=== PATIENT | female | born 1995 | race Caucasian/White ===

== ENCOUNTER → 2019-09-24 09:30 | Outpatient (BNVA) | payer MEDICAID, SELFPAY | PROVIDERS: Visit Provider Obstetrics & Gynecology | DX: Z01.89 Encounter for other specified special examinations (principal) | CPT/HCPCS: 84315 ==

== ENCOUNTER → 2019-10-22 07:58 | Outpatient (BNVA) | payer MEDICAID, SELFPAY | PROVIDERS: Visit Provider Obstetrics & Gynecology | DX: Z34.82 Encounter for supervision of other normal pregnancy, second trimester (principal) | CPT/HCPCS: 81003; 82950 ==

== ENCOUNTER → 2019-11-19 08:03 | Outpatient (BNVA) | payer MEDICAID, SELFPAY | PROVIDERS: Visit Provider Obstetrics & Gynecology | DX: Z34.83 Encounter for supervision of other normal pregnancy, third trimester (principal) | CPT/HCPCS: 81000; 85027 ==

== ENCOUNTER → 2019-12-02 08:10 | Outpatient (BNVA) | payer MEDICAID, SELFPAY | PROVIDERS: Visit Provider Obstetrics & Gynecology | DX: O99.343 Other mental disorders complicating pregnancy, third trimester (principal) | CPT/HCPCS: 81000 ==

== ENCOUNTER → 2019-12-16 09:11 | Outpatient (BNVA) | payer MEDICAID, SELFPAY | PROVIDERS: Visit Provider Obstetrics & Gynecology | DX: Z34.83 Encounter for supervision of other normal pregnancy, third trimester (principal) | CPT/HCPCS: 81000 ==

== ENCOUNTER → 2019-12-28 08:54 | Outpatient (BNVA) | payer MEDICAID, SELFPAY | PROVIDERS: Visit Provider Obstetrics & Gynecology | DX: O99.343 Other mental disorders complicating pregnancy, third trimester (principal); Z34.83 Encounter for supervision of other normal pregnancy, third trimester | CPT/HCPCS: 81000 ==

== ENCOUNTER → 2020-01-14 10:04 | Outpatient (BNVA) | payer MEDICAID, SELFPAY | PROVIDERS: Visit Provider Obstetrics & Gynecology | DX: Z34.83 Encounter for supervision of other normal pregnancy, third trimester (principal) | CPT/HCPCS: 76816; 81000; 87081 ==

== ENCOUNTER → 2020-01-21 07:55 | Outpatient (BNVA) | payer MEDICAID, SELFPAY | PROVIDERS: Visit Provider Obstetrics & Gynecology | DX: Z34.83 Encounter for supervision of other normal pregnancy, third trimester (principal) | CPT/HCPCS: 81000 ==

== ENCOUNTER → 2020-01-28 08:01 | Outpatient (BNVA) | payer MEDICAID, SELFPAY | PROVIDERS: Visit Provider Obstetrics & Gynecology | DX: Z34.83 Encounter for supervision of other normal pregnancy, third trimester (principal) | CPT/HCPCS: 81000 ==

== ENCOUNTER 2020-02-02 00:17 | Inpatient (IN) | payer MEDICAID, SELFPAY ==
[2020-02-01 23:48] VITALS: RESP 16; TEMP 37.1
[2020-02-01 23:50] VITALS: RESP 16; TEMP 37.1
[2020-02-01 23:54] VITALS: BP 117/68; PULSE 100
[2020-02-02] VITALS (83 sets, daily range): BP systolic 0–148; BP diastolic 0–112; PULSE 73–116; RESP 15–18; TEMP 36.6–37.3; O2SAT 79–99; BMI 34.5
[2020-02-02 00:49] LABS: Basophils % 0.2 %; Eosinophils # 0.1 10^3/uL (0.0-0.8); Eosinophils % 0.3 %; Hematocrit 36.9 % (37.0-47.0); Hemoglobin 12.1 g/dL (11.5-15.3); Lymphocytes # 1.2 10^3/uL (0.8-4.8); Lymphocytes % 8.4 %; Mean Corpuscular HGB Conc 32.8 g/dL (30.0-36.0); Mean Corpuscular Hemoglobin 31.1 pg (28.0-34.0); Mean Corpuscular Volume 94.9 fL (81-99); Mean Platelet Volume 10.7 fL (7.4-10.4); Monocytes # 0.7 10^3/uL (0.2-0.9); Monocytes % 4.7 %; Neutrophils # 12.3 10^3/uL (1.8-7.7); Neutrophils % 85.8 %; Nucleated Red Blood Cells % 0 %; Platelet Count 290 10^3/cmm (130-400); Red Blood Count 3.89 10^6/uL (4.1-5.3); Red Cell Distribution Width 12.8 % (12.1-15.1); White Blood Count 14.3 10^3/uL (4.0-10.0)
[2020-02-02] MEDS: ondansetron 2 mg/ML SDV 2 mL 4 MG IVP (00:50)
[2020-02-02] MEDS: alum-mag-hydroxide-sime 30 mL UDC PO ×2 (00:51→14:40)
[2020-02-02] MEDS: fentaNYL 50 mcg/mL INJ 2mL IV ×5 (01:04→06:43)
--- NOTE | 2020-02-02 01:15 | PC.NURSE ---
report given to Cyn Colunga RN, care relinquished
[2020-02-02] MEDS: dextrose 5%-lactated ringers 1,000 ML 125 ML IV (01:36)
--- NOTE | 2020-02-02 07:25 | P.ANESASSM_ITS ---
Pre-Anesthetic Assessment Pre-Anesthetic Assessment: Height/Weight: Height 1.57 m Weight 85.729 kg Temp Pulse Resp BP Pulse Ox 99.1 F 116 H 18 111/50 79 L 02/02/20 03:59 02/02/20 07:44 02/02/20 06:43 02/02/20 07:44 02/02/20 07:41 Preop Diagnosis: IUP Proposed Procedure: labor epidural Was Beta Demario taken within 24 hours: N/A Social: Social History: No alcohol and No tobacco Exam: Pre-Anes Outpt Exam: alert, oriented x 3, clear to auscultation bilaterally and regular rate & rhythm Airway: Submandibular: WNL Cervical ROM: WNL MP: 1 History/ROS: No significant history except as noted Pulmonary: Pulmonary: None reported CV/HEM: CV/HEM: None reported : : None reported Hepatic: Hepatic: None reported GI: GI: GERD Metabolic: Metabolic: None reported Musc/skel: Musc/skel: None reported Neuropsych: Neuropsych: None reported Anesthetic Plan: ASA status: 1 Anesthesia: Anesthesia Evaluation Risk of > 500 ml blood loss (7ml/kg in children): No Meds/Allergies Current Medications: Current Medications Generic Name Dose Route Start Last Admin Trade Name Freq PRN Reason Stop Dose Admin Al Hydrox/Mg [place] x/Simethicone 30 ml 02/02/20 00:07 02/02/20 00:51 Maalox PO 30 ml Q4H PRN Administration INDIGESTION Fentanyl 25 - 100 mcg 02/02/20 00:07 02/02/20 06:43 Sublimaze IV 50 mcg Q1H PRN Administration SEVERE PAIN Dextrose/Lactated Ringer's 1,000 mls @ 125 m ls/hr 02/02/20 00:07 02/02/20 01:36 Dextrose 5%-Lact ated Ringers IV 125 mls/hr .Q8H PRN Administration LABOR INDUCTION Lactated Ringer's 1,000 mls @ 999 m ls/hr 02/02/20 06:58 02/02/20 07:31 Lactated Ringers IV 999 mls/hr .Q1H1M PRN Administration epidural Ropivacaine 200 mg in 100 mls @ 13 mls/hr 02/02/20 07:00 02/02/20 07:46 Naropin Premix EPIDURAL 13 mls/hr .Q7H42M CHRISTIANE Administration Ondansetron HCl 4 mg 02/02/20 00:07 02/02/20 00:50 Zofran IVP 4 mg Q4H PRN Administration NAUSEA AND VOMITI NG PFSH Anesthesia PFSH: Medical History (Updated 01/28/20 @ 08:03 by Elliott Ponce MD) Depression 07/28/2019: Reports prepregnancy depression, currently managed without me dication. Has had counseling at [facility]. Surgical History S/P dilation and curettage (~2012) EAb Family History Father Diabetes Mother Thyroid disease Social History Smoking and tobacco status: former smoker Quit status (tobacco): has quit using tobacco Year quit tobacco: 01/2018 Former quit date comment: social use Alcohol intake: never Additional social history: well balanced diet Female Reproductive History: : 4 Data Anesthesia CBC & Chem 7: 02/02/20 00:30 Other Labs: Laboratory Results - last 48 hr 02/02/20 00:30 WBC 14.3 H RBC 3.89 L Hgb 12.1 Hct 36.9 L MCV 94.9 MCH 31.1 MCHC 32.8 RDW 12.8 Plt Count 290 MPV 10.7 H Neut % (Auto) 85.8 Lymph % (Auto) 8.4 [place] % (Auto) 4.7 Eos % (Auto) 0.3 Baso % (Auto) 0.2 Neut # (Auto) 12.3 H Lymph # (Auto) 1.2 [place] # (Auto) 0.7 Eos # (Auto) 0.1 Baso # (Auto) 0.0 Nucleated RBC % (auto) 0 Nucleated RBCs # 0.0 Cardiac Studies: No Data to Display
[2020-02-02] MEDS: lactated ringers 1,000 ML 999 ML IV (07:31)
--- NOTE | 2020-02-02 07:50 | ANES.PROC ---
Anesthesia Procedures Procedure/Date: 02/02/20 Epidural: Time Out Performed: Yes Consents Signed: Procedure Consent Consent: requested by attending/covering physician Lumbar Level: L3-L4 Epidural position: sitting Epidural procedure: sterile prep of area, 1% lidocaine to numb the area, 18 g needle, negative for paresthesia passed, neg for paresthesia, 1.5% xylocaine 1:200k epi (5ml), placed PCEA, no systemic response, sterile dressing applied, L.U.D. no apparent complications and 0.2% Ropiavacaine @ mls/hr (13)
[2020-02-02] MEDS: oxytocin 30 UNIT/500 ML BAG 600 UNIT IV (08:45)
--- NOTE | 2020-02-02 08:56 | P.PCNOB_ITS ---
Delivery Note: Date of delivery: February 02, 2020 Pre-delivery diagnoses: 1. Term at 39-4/7 weeks gestation 2. Mental disorder complicating in third trimester 3. Gastroesophageal reflux in in third trimester Post-delivery diagnoses: 1. Term at 39-4/7 weeks gestation - delivered 2. Mental disorder complicating - delivered 3. Gastroesophageal reflux in - delivered 4. Viable female Procedure: Spontaneous vaginal delivery Op report anesthesia: Epidural Delivering Physician: Elliott Ponce MD Estimated blood loss (mL): 50 Pre-Delivery Course: Patient is a 24-year-old white female 4, para 1-0-2-1 with an LMP of 05/01/2019 and an EDC of 02/05/2020 based on LMP and consistent with a 20-week ultrasound, which placed her at 39-3/7 weeks gestation at the time of admission. She presented to labor and delivery at 23:40 on 02/01/2020 with a complaint of contractions. She stated these had started at about 5 AM that morning but had slowly worsened through the day before becoming strong enough that she decided to come to the hospital. She had denied any leaking of fluid or vaginal bleeding at that time. On exam on admission she was found to be 80% effaced and 4 to 5 cm dilated at a -1 station. She was jose about every 5 minutes. She was admitted to the hospital and allowed to labor on her own. This morning she was 8 cm dilated and was uncomfortable enough that she decided she wanted an epidural. Epidural was placed. At 07:57, artificial rupture membranes was performed with clear fluid present. The cervix was 8 cm dilated at the time with bulging membranes with the cervix shrinking to 5 cm dilation after AROM. She then progressed to complete dilation by 08:28. During the labor course she had episodes of intermittent variable decelerations. Following ROM, she had more consistent variable decelerations. Delivery: Patient started pushing at 08:37 and delivered at 08:40 as a spontaneous vaginal delivery of an occiput anterior female over an intact perineum under epidural anesthesia. Following delivery of the 's head, no nuchal cords were noted. The rest of the delivered atraumatically with the right shoulder anterior. Nose and mouth were suctioned with bulb suction. was placed on the mother's abdomen where the cord was clamped. It was cut by the reported father of the baby. The baby was spontaneously crying and left in the care of the waiting nurses. Cord blood was obtained. Pitocin bolus was started. Placenta delivered intact by simple expression at 08:44. The cervix and vagina were palpated and noted to be intact. The labia were inspected and noted to be intact except for superficial abrasions which required no repair. FINDINGS 1. Viable female infant weighing 6 lbs 5 oz (2855 g) with a length of 20 inches and Apgars of 8 at 1 minute and 9 at 5 minutes. 2. Three-vessel cord with no loops of nuchal cord noted. 3. Normal-appearing placenta with an eccentric cord insertion. Post-Delivery Status: Mother and were left to recover in satisfactory condition. A&P Assessment and plan (1) Term delivered: Status: Acute (2) Mental disorder in , delivered: Status: Acute (3) Gastroesophageal reflux in in third trimester: Status: Acute (4) Term of female: Status: Acute Coding Level of Care Code Acute Diesel Pile Driver Operator for Chg Fwd Diagnoses Term delivered O80 Mental disorder in , delivered O99.344 Gastroesophageal reflux in in third trimester O99.613; K21.9 Term of female Z37.0
[2020-02-02] MEDS: acetaminophen 325 mg Tablet 650 MG PO (12:30)
[2020-02-02] MEDS: docusate sodium 100 mg Capsule PO (21:06)
[2020-02-03 02:45] VITALS: BP 121/80; PULSE 82; RESP 18; TEMP 36.8
[2020-02-03 05:51] VITALS: BP 132/70; PULSE 72; RESP 18; TEMP 36.6
[2020-02-03 05:51] LABS: Hematocrit 32.4 % (37.0-47.0); Hemoglobin 10.4 g/dL (11.5-15.3); Mean Corpuscular HGB Conc 32.1 g/dL (30.0-36.0); Mean Corpuscular Hemoglobin 30.6 pg (28.0-34.0); Mean Corpuscular Volume 95.3 fL (81-99); Mean Platelet Volume 10.4 fL (7.4-10.4); Platelet Count 236 10^3/cmm (130-400); White Blood Count 12.4 10^3/uL (4.0-10.0)
[2020-02-03] MEDS: prenatal vitamin Capsule 1 CAP PO (08:38)
[2020-02-03] MEDS: docusate sodium 100 mg Capsule PO (08:38)
[2020-02-03 11:30] VITALS: BP 124/82; PULSE 84; RESP 16; TEMP 36.8; O2SAT 98
[2020-02-03] MEDS: benzocaine-menthol 78 gm Canister 1 SPRAY TOPICAL (12:33)
--- NOTE | 2020-02-03 13:19 | P.DS_ITS ---
Discharge Providers Date of Admission: 02/02/20 00:17 Date of Discharge: February 03, 2020 Attending Provider at Admission: Elliott Ponce MD Attending Provider at Discharge: Elliott Ponce MD Diagnoses at Discharge Discharge Diagnosis (1) Term delivered: Status: Resolved (2) Mental disorder in , delivered: Status: Resolved (3) Gastroesophageal reflux in in third trimester: Status: Resolved (4) Term of female: Status: Resolved Reason for Visit 2 Reason for Visit: abd pain Hospital Course Hospital Course: Patient is a 24-year-old white female 4, para 1-0-2-1 with an LMP of 05/01/2019 and an EDC of 02/05/2020 based on LMP and consistent with a 20-week ultrasound, which placed her at 39-3/7 weeks gestation at the time of admission. She presented to L&D on 02/01/2020 at 23:40 complaining of contractions. They had started earlier that morning but have slowly worsened through the day before eventually becoming strong enough that she decided to come to the hospital. On admission she was noted to be 80% effaced on 4 to 5 cm dilated. She was jose every 5 minutes. She continued to progress through the morning and eventually decided to have an epidural. Following epidural, she was noted to be 8 cm dilated with bulging membranes at 07:57. Artificial rupture membranes was performed with clear fluid present. She progressed to complete dilation by 08:28. Patient started pushing at 08:37 and delivered at 08:40 as a spontaneous vaginal delivery of an occiput anterior female infant over an intact perineum under epidural anesthesia. The baby weighed 6 pounds 5 ounces (2855 g) with a length of 20 inches and Apgars of 8 at 1 minute and 9 at 5 minutes. She had superficial abrasions which required no repair. Mother and baby both did well following delivery. Day 1 Patient denies complaints at this time. States pain is been well controlled. Denies lightheadedness or dizziness with ambulation. Denies shortness of breath or chest pains. Reports tolerating a regular diet without nausea or vomiting. Denies problems with urination. States bleeding has slowed. She is requesting to go home. Physical Exam: See below. Plan: Discharge to home. Discharge instructions discussed with patient. Patient to follow-up in the office in 6 weeks for exam. Physical Exam Const: COMMON NORMALS: no acute distress, average body habitus, alert and well nourished GENERAL APPEARANCE: well developed ORIENTATION/CONSCIOUSNESS: Yes oriented to person, Yes oriented to place and Yes oriented to time Resp: COMMON NORMALS: clear to auscultation bilaterally AUSCULTATION: clear to auscultation bilaterally Cardio: COMMON NORMALS: regular rate, regular rhythm, No gallops present (Cardio) and No rub (Cardio) RATE: regular rate RHYTHM: regular rhythm GI: COMMON NORMALS: Soft to palpation, non-tender, No hepatosplenomegaly present and no masses (Except for nontender firm uterus, 2 fingerbreadths below umbilicus) AUSCULTATION: Yes normoactive bowel sounds PALPATION: Yes Soft to palpation, Yes No hepatosplenomegaly present and No Hernia present : EXTERNAL FEMALE EXAM: No Hernia present Neuro: SENSORIUM/ORIENTATION: Yes alert, Yes oriented to person, Yes oriented to place and Yes oriented to time Psych: COMMON NORMALS: normal affect MOOD & AFFECT: Yes euthymic mood Discharge Data Data Completed and Pending: Labs from last 24 hours 02/03/20 05:35 WBC 12.4 H RBC 3.40 L Hgb 10.4 L Hct 32.4 L MCV 95.3 MCH 30.6 MCHC 32.1 RDW 13.0 Plt Count 236 MPV 10.4 Vitals: Last Vital Signs Temp 97.8 F 02/03/20 05:51 Pulse 72 02/03/20 05:51 Resp 18 02/03/20 05:51 BP 132/70 02/03/20 05:51 Pulse Ox 99 02/02/20 22:32 Discharge Plan Discharge Patient Disposition: Home, Self-Care Condition: Stable Prescriptions: Continued prenat.vits,cherrie,[id number] Tablet 1 tab PO QDAY RF: 0 acetaminophen [Tylenol Extra Strength] 500 mg tablet 500 mg PO Q6H PRN (Reason: Pain) RF: 0 Discontinued famotidine [Pepcid] 20 mg tablet 20 mg PO BID RF: 0 Discharge Orders: Discharge Order (Routine); Ordered 02/03/20 Ordered By: Elliott Ponce Referrals: Elliott Ponce MD [Physician] - 03/16/20 10:15 am (* Your 6 week follow up appointment with Dr. Ponce is March 16 2020 at 10:15am. ) Discharge Diet: Regular Discharge Activity: Resume usual activity Patient Instructions: OB Discharge Report, OB Anesthesia Instructions, OB Food/Drug Interaction Guide, OB Home Care, OB Proud Parent Packet, OB Vaginal Deliveries - [facility] Discharge Date/Time: 02/03/20 14:20 Discharge Attestations Time Spent in Discharge Care*: less than 30 min Quality Metrics Clinical Quality Measures During this hospital stay, did patient experience: None Coding Level of Care Code Acute Oil Well Logger for Chg Fwd Exam Detailed Diagnoses Term delivered O80 Mental disorder in , delivered O99.344 Gastroesophageal reflux in in third trimester O99.613; K21.9 Term of female Z37.0
== END 2020-02-03 14:20 | disposition home or self-care (01) | DRG 807 ==
LOC: OPOB 00:18 → OBGYN 00:18
PROVIDERS: Admitting Provider Obstetrics & Gynecology; Visit Provider Obstetrics & Gynecology
DX: O76 Abnormality in fetal heart rate and rhythm complicating labor and delivery (principal); Z37.0 Single live birth; Z3A.39 39 weeks gestation of pregnancy; O75.89 Other specified complications of labor and delivery; K21.9 Gastro-esophageal reflux disease without esophagitis
CPT/HCPCS: 12345; 36415; 51702; 59025; 59409; 85025; 85027; 96374; 96375; 98960; 99211; J2405; J2795; J3010

== ENCOUNTER 2022-11-26 23:27 | Inpatient (IN) | payer BC, MEDICAID, SELFPAY ==
[2022-11-26 22:46] VITALS: RESP 16
[2022-11-26 22:50] VITALS: TEMP 35.6
[2022-11-26 22:53] VITALS: BP 113/69; PULSE 87
[2022-11-26 23:22] VITALS: BP 118/66; PULSE 89
[2022-11-26 23:35] VITALS: RESP 18; TEMP 36.4
[2022-11-26 23:56] VITALS: BP 127/74; PULSE 84
[2022-11-27] VITALS (44 sets, daily range): BP systolic 88–146; BP diastolic 53–93; PULSE 63–110; RESP 18; O2SAT 82–99
[2022-11-27 00:12] LABS: Basophils % 0.3 %; Eosinophils % 0.3 %; Hematocrit 37.9 % (37.0-47.0); Hemoglobin 12.4 g/dL (11.5-15.3); Lymphocytes # 1.4 10^3/uL (0.8-4.8); Lymphocytes % 12.5 %; Mean Corpuscular HGB Conc 32.7 g/dL (30.0-36.0); Mean Corpuscular Hemoglobin 30.9 pg (28.0-34.0); Mean Corpuscular Volume 94.5 fl (81-99); Mean Platelet Volume 10.2 fL (7.4-10.4); Monocytes # 0.5 10^3/uL (0.2-0.9); Monocytes % 4.7 %; Neutrophils % 81.6 %; Nucleated Red Blood Cells % 0 %; Platelet Count 341 10^3/cmm (130-400); Red Blood Count 4.01 10^6/uL (4.1-5.3); Red Cell Distribution Width 12.6 % (12.1-15.1); White Blood Count 11.5 10^3/uL (4.0-10.0)
[2022-11-27] MEDS: ondansetron 2 mg/ML SDV 2 mL 4 MG IVP (00:14)
[2022-11-27 00:35] LABS: Amphetamines Screen Urine Negative (Negative); Barbiturates Screen Urine Negative (Negative); Benzodiazepines Screen Urine Negative (Negative); Cocaine Screen Urine Negative (Negative); Opiate Screen Urine Negative (Negative); PCP Screen Urine Negative (Negative); THC Screen Urine Positive (Negative)
[2022-11-27] MEDS: lactated ringers 1,000 ML 999 ML IV (00:50)
--- NOTE | 2022-11-27 01:12 | P.ANESASSM_ITS ---
Pre-Anesthetic Assessment Height/Weight: Height 1.57 m Weight 81.647 kg Temp Pulse Resp BP O2 Del Method 97.6 F 93 18 128/80 11/26/22 23:35 11/27/22 00:56 11/26/22 23:35 11/27/22 00:56 11/26/22 23:52 Preop Diagnosis: IUP epidural Familial anesthetic complications: none Was Beta Demario taken within 24 hours: N/A Was Clonidine taken within 24 hours: N/A Last Intake: 22:00 Social No alcohol and No tobacco Exam alert, oriented x 3, clear to auscultation bilaterally and regular rate & rhythm Airway Submandibular: within normal limits Cervical ROM: within normal limits Mallampati: Class II Dentition: full Pulmonary None reported CV/HEM None reported None reported Hepatic None reported GI Gastroesophageal Reflux Disease (with ) Metabolic None reported Musc/skel Lower Back Pain (with ) Neuropsych None reported Anesthetic Plan ASA status: 2 Anesthesia: Regional (specify below) (epidural) Risk of > 500 ml blood loss (7ml/kg in children): No Medications/Allergies Home Medications Medication Instructions Recorded Confirmed Last Taken Type prenat.vits,cherrie,[id number] 1 tab PO DAILY 11/26/22 11/26/22 11/23/22 History Allergies Allergy/AdvReac Type Severity Reaction Status Date / Time No Known Allergies Allergy Verified 11/26/22 22:48 Current Medications Generic Name Dose Route Start Last Admin Trade Name Freq PRN Reason Stop Dose Admin Ondansetron HCl 4 mg 11/26/22 23:35 11/27/22 00:14 Ondansetron 2 Mg/Ml Sdv 2 Ml IVP 4 mg Q4H PRN Administration NAUSEA AND VOMITING PFSH Anesthesia Medical History (Updated 02/20/21 @ 11:50 by Su Coreas MD) ADHD Depression 07/28/2019: Reports prepregnancy depression, currently managed without medication. Has had counseling at [facility], [place]. Surgical History S/P dilation and curettage (~2012) EAb Family History Father Diabetes Mother Thyroid disease Social History (Updated 02/20/21 @ 09:46 by Jonathan Dumont LPN) Smoking and tobacco status: former smoker Quit status (tobacco): has quit using tobacco Year quit tobacco: 01/2018 Former quit date comment: social use Second hand smoke exposure: Yes (Rarely) Alcohol intake: never Additional social history: well balanced diet Female Reproductive History : 5 Data Anesthesia 11/26/22 23:45 Short CBC 11/26/22 Range/Units 23:45 WBC 11.5 H (4.0-10.0) 10^3/uL Hgb 12.4 (11.5-15.3) g/dL Hct 37.9 (37.0-47.0) % MCV 94.5 (81-99) fl Plt Count 341 (130-400) 10^3/cmm Neut % (Auto) 81.6 % Neut # (Auto) 9.40 H (1.8-7.7) 10^3/uL Cardiac Studies: No Data to Display
--- NOTE | 2022-11-27 01:46 | ANES.PROC ---
Anesthesia Procedures Procedure/Date: 11/27/22 Epidural: Time Out Performed: Yes Consents Signed: Procedure Consent and NPO Consent Consent: requested by attending/covering physician, from patient, risks and benefits reviewed and patient agrees to proceed Lumbar Level: L3-L4 Epidural position: sitting Epidural procedure: sterile prep of area (betadine), 1% lidocaine to numb the area (3ml), 18 g needle, negative for paresthesia passed, neg for paresthesia, test dose given, 1.5% xylocaine 1:200k epi (3ml/2ml), 0.2% Ropivacaine bolus ml (5ml), placed PCEA, no systemic response, sterile dressing applied, L.U.D. no apparent complications and 0.2% Ropiavacaine @ mls/hr (13ml/hr)
[2022-11-27] MEDS: metoclopramide 5 mg/mL SDV 2 mL 10 MG IV (02:01)
[2022-11-27] MEDS: oxytocin 30 UNIT/500 ML BAG 600 UNIT IV (02:27)
--- NOTE | 2022-11-27 02:35 | PM.OPHPUD ---
Labor & Delivery H&P Update Date of Procedure: November 27, 2022 Date H&P Performed: 11/25/22 Changes to previous documentation: The patient arrived at 5 cm dilated having consistent contractions. Admission Diagnosis: 27-year-old 4 para 2-0-1-2 at 39 weeks estimated gestational age in active labor Preop diagnosis: IUP Other information: The patient is an otherwise healthy 27-year-old female who presents to the hospital in active labor. Her membranes were intact. Her is significant for late care. And, other than a ultrasound performed in the first trimester, she had minimal care prior to seeing me due to moving and other issues. Her blood type is O+. Her antibody screen was negative. Her GBS status is negative. She is rubella immune. She was THC positive. The rest of her infectious disease profile was within normal limits.
--- NOTE | 2022-11-27 02:42 | PM.DELIVERY ---
Delivery Note: Date of delivery: November 27, 2022 Pre-delivery diagnoses: 27-year-old 5 para 2-0-2-2 at 39 weeks estimated gestational age presenting to the hospital in active labor. Post-delivery diagnoses: Status post precipitous delivery Procedure: Precipitous spontaneous vaginal delivery Delivering Physician: Mark Modi Estimated blood loss (mL): 50 Pre-Delivery Course: Patient presented to the hospital in active labor. An epidural was placed. She then quickly progressed to complete prior to the epidural having of incomplete effect. Delivery: DELIVERY: The patient progressed to complete without difficulty. She delivered a female with a weight of 5 pounds 11 ounces with Apgars of 7, 9. The baby was delivered from the vertex position. and placed on the mother's abdomen until I arrived in the room. I then assisted with cutting clamp the cord. There was no nuchal cord. There was no meconium. The placenta and 3 vessel cord were delivered intact shortly thereafter. The perineum and vaginal vault were carefully examined. No lacerations were noted. Both the mother and the baby were in stable condition. Post-Delivery Status: Good History History History 5 Term 2 0 Miscarriages/Ectopic 2 Living Children 2 A&P Assessment and plan (1) 39 weeks gestation of : I anticipate routine care. (2) Spontaneous vaginal delivery: Coding Level of Care Code Acute Code for Chg Fwd Diagnoses 39 weeks gestation of Z3A.39 Spontaneous vaginal delivery O80
[2022-11-27] MEDS: benzocaine-menthol 78 gm Canister 1 SPRAY TOPICAL (05:10)
[2022-11-27] MEDS: lanolin oint 7 gm 1 APPLIC TOPICAL (05:10)
--- NOTE | 2022-11-27 07:41 | PC.NURSE ---
hotline made by this nurse to Jessica worker number [id number] due to positive UDS and late to care at 37 weeks.
[2022-11-27] MEDS: prenatal vitamin Capsule 1 CAP PO (09:19)
[2022-11-27] MEDS: docusate sodium 100 mg Capsule PO ×2 (09:19→19:05)
[2022-11-27] MEDS: ibuprofen 800 mg tablet PO ×3 (09:19→21:34)
--- NOTE | 2022-11-27 11:17 | ANE.PACU2 ---
Inpatient post-anesthesia follow up: Airway intact: Yes Vital signs: Temperature 97.6 F Pulse Rate 92 Respiratory Rate 18 Blood Pressure 113/63 Pulse Oximetry 97 Oxygen Delivery Me thod Room Air Oxygen Flow Rate Fraction of Inspir ed Oxygen Hydration adequate: Yes Nausea and vomiting: No Pain level: 2 Mental status: Baseline
[2022-11-27 14:20] LABS: Hemoglobin 11.8 g/dL (11.5-15.3); Mean Corpuscular HGB Conc 33.7 g/dL (30.0-36.0); Mean Corpuscular Hemoglobin 31.8 pg (28.0-34.0); Mean Corpuscular Volume 94.3 fl (81-99); Mean Platelet Volume 10.3 fL (7.4-10.4); Platelet Count 345 10^3/cmm (130-400); Red Blood Count 3.71 10^6/uL (4.1-5.3); Red Cell Distribution Width 12.5 % (12.1-15.1); White Blood Count 16.5 10^3/uL (4.0-10.0)
[2022-11-28 05:15] VITALS: BP 109/62; PULSE 77
--- NOTE | 2022-11-28 07:11 | P.DS_ITS ---
Discharge Providers [employer] Date of Admission: 11/26/22 23:27 Date of Discharge: 11/28/22 Attending Provider at Admission: Mark Modi MD Attending Provider at Discharge: Mark Modi MD Diagnoses at Discharge Discharge Diagnosis (1) 39 weeks gestation of : Status: Acute (2) Spontaneous vaginal delivery: Status: Acute Reason for Visit Reason for Visit: CONTRACTIONS Hospital Course Hospital Course The patient presented to the hospital with contractions and cervical change. An epidural was placed. She progressed to complete and had a precipitous delivery. Her course was unremarkable. Her bleeding was within normal limits. She breast-fed well. Her pain was well controlled. Information Peripartum Data: Delivery Method: Vaginal Physical Exam Narrative: The patient is alert. She appears comfortable. Her heart has a regular rate and rhythm with no murmurs appreciated. Lungs are clear to auscultation bilaterally. Her fundus is firm and below the umbilicus. Urinary Catheter Management: Duncan Latex: Cath Placed During This Visit: yes, but has since been removed by the nurse Reason for Continuing Indwelling Catheter: Decision to DC Catheter Urinary Catheter Date of Insertion: 11/27/22 Urinary Catheter Time of Insertion: 02:05 Date Urinary Catheter Removed: 11/27/22 Time Urinary Catheter Discontinued: 02:35 History History History 5 Term 2 0 Miscarriages/Ectopic 2 Living Children 2 Discharge Data Studies Completed and Pending Laboratory Results WBC 16.5 10^3/uL (4.0-10.0) H 11/27/22 14:10 RBC 3.71 10^6/uL (4.1-5.3) L 11/27/22 14:10 Hgb 11.8 g/dL (11.5-15.3) 11/27/22 14:10 Hct 35.0 % (37.0-47.0) L 11/27/22 14:10 MCV 94.3 fl (81-99) 11/27/22 14:10 MCH 31.8 pg (28.0-34.0) 11/27/22 14:10 MCHC 33.7 g/dL (30.0-36.0) 11/27/22 14:10 RDW 12.5 % (12.1-15.1) 11/27/22 14:10 Plt Count 345 10^3/cmm (130-400) 11/27/22 14:10 MPV 10.3 fL (7.4-10.4) 11/27/22 14:10 Neut % (Auto) 81.6 % 11/26/22 23:45 Lymph % (Auto) 12.5 % 11/26/22 23:45 [place] % (Auto) 4.7 % 11/26/22 23:45 Eos % (Auto) 0.3 % 11/26/22 23:45 Baso % (Auto) 0.3 % 11/26/22 23:45 Neut # (Auto) 9.40 10^3/uL (1.8-7.7) H 11/26/22 23:45 Lymph # (Auto) 1.4 10^3/uL (0.8-4.8) 11/26/22 23:45 [place] # (Auto) 0.5 10^3/uL (0.2-0.9) 11/26/22 23:45 Eos # (Auto) 0.0 10^3/uL (0.0-0.8) 11/26/22 23:45 Baso # (Auto) 0.0 10^3/uL (0.0-0.1) 11/26/22 23:45 Nucleated RBC % (auto) 0 % 11/26/22 23:45 Nucleated RBCs # 0.0 /100WBC 11/26/22 23:45 Urine Opiates Screen Negative ng/mL (Negative) 11/27/22 00:00 Ur Barbiturates Screen Negative ng/mL (Negative) 11/27/22 00:00 Ur Phencyclidine Scrn Negative ng/mL (Negative) 11/27/22 00:00 Ur Amphetamines Screen Negative ng/mL (Negative) 11/27/22 00:00 U Benzodiazepines Scrn Negative ng/mL (Negative) 11/27/22 00:00 Urine Cocaine Screen Negative ng/mL (Negative) 11/27/22 00:00 U Marijuana (THC) Screen Positive ng/mL (Negative) H 11/27/22 00:00 Vitals Last Vital Signs Temp 97.6 F 11/26/22 23:35 Pulse 77 11/28/22 05:15 Resp 18 11/27/22 03:44 BP 109/62 11/28/22 05:15 Pulse Ox 97 11/27/22 02:10 O2 Del Method 11/26/22 23:52 Discharge Plan Discharge Patient Disposition: Home Condition: Stable Prescriptions: New ibuprofen 800 mg Tablet 800 mg PO TID Qty: 45 0RF Continued prenat.vits,cherrie,[id number] Tablet 1 tab PO DAILY Discharge Orders: Discharge Order (Routine); Ordered 11/28/22 Ordered By: Mark Modi Referrals: Srikanth Kim MD [Physician] - 2 weeks (Consultation for laparoscopic tubal ligation) Mark Modi MD [Physician] - 6 Weeks Discharge Diet: Usual diet Discharge Activity: Limit activity as instructed Patient Instructions: Depression (DC), Preeclampsia and Eclampsia After Delivery (GEN), OB Discharge Report, OB Food/Drug Interaction Guide, OB Care at Home, Opioid Safety, OB Vaginal Deliveries, Abnormal Bleeding Activity Restrictions/Additional Instructions: Please have patient's sign a sterilization consent form prior to discharge from the hospital. Discharge Attestations [employer] Time Spent in Discharge Care*: less than 30 min Coding Level of Care Code Acute Code for Chg Fwd Diagnoses 39 weeks gestation of Z3A.39 Spontaneous vaginal delivery O80
[2022-11-28] MEDS: ibuprofen 800 mg tablet PO (09:51)
[2022-11-28] MEDS: prenatal vitamin Capsule 1 CAP PO (09:51)
[2022-11-28] MEDS: docusate sodium 100 mg Capsule PO (09:51)
[2022-11-28 09:53] VITALS: BP 108/54; PULSE 90
[2022-11-28 10:35] VITALS: BP 108/54; PULSE 90; RESP 16; TEMP 36.4
== END 2022-11-28 10:35 | disposition home or self-care (01) | DRG 807 ==
LOC: OPOB 23:28 → OBGYN 23:28
PROVIDERS: Admitting Provider Family Medicine; Visit Provider Family Medicine
DX: O99.324 Drug use complicating childbirth (principal); Z37.0 Single live birth; F12.90 Cannabis use, unspecified, uncomplicated; Z3A.39 39 weeks gestation of pregnancy; O75.89 Other specified complications of labor and delivery; Z87.891 Personal history of nicotine dependence; F90.9 Attention-deficit hyperactivity disorder, unspecified type; F41.9 Anxiety disorder, unspecified
CPT/HCPCS: 12345; 36415; 51702; 59025; 59409; 80306; 85025; 85027; 96374; 99211; J2405; J2590; J2765; J2795; J7120

== ENCOUNTER 2023-04-22 07:39 | Day surgery (SDC) | payer BC, MEDICAID, SELFPAY ==
[2023-04-21 10:11] VITALS: BMI 25.0
--- NOTE | 2023-04-21 10:39 | ANES.PREANE2 ---
Pre-Anesthetic Assessment Height/Weight: Height 1.57 m Weight 62.142 kg Operation Date: 04/22/23 09:10 Proposed Procedures p Laparoscopic bilateral salpingectomy 45465,Z30.2(Bilateral) - Srikanth Kim MD Familial anesthetic complications: none Was Beta Demario taken within 24 hours: N/A Was Clonidine taken within 24 hours: N/A Social No alcohol and No tobacco Exam alert, oriented x 3, clear to auscultation bilaterally and regular rate & rhythm Airway Submandibular: within normal limits Cervical ROM: within normal limits Mallampati: Class I Dentition: full History/ROS No significant history except as noted Anesthetic Plan ASA status: 1 Anesthesia: General Medications/Allergies Home Medications Medication Instructions Recorded Confirmed Last Taken Type No Known Home Medications 03/11/23 04/21/23 Unknown History Allergies Allergy/AdvReac Type Severity Reaction Status Date / Time No Known Allergies Allergy Verified 04/21/23 10:10 [facility] Anesthesia Medical History ADHD Depression 07/28/2019: Reports prepregnancy depression, currently managed without medication. Has had counseling at [facility]. Psychiatric care Surgical History S/P dilation and curettage (~2012) EAb Family History Father Diabetes Mother Thyroid disease Data Anesthesia Cardiac Studies: No Data to Display
[2023-04-21 10:48] LABS: Basophils % 0.7 %; Eosinophils # 0.2 10^3/uL (0.0-0.8); Eosinophils % 3.5 %; Hematocrit 41.2 % (37.0-47.0); Hemoglobin 13.7 g/dL (11.5-15.3); Lymphocytes # 1.8 10^3/uL (0.8-4.8); Lymphocytes % 39.4 %; Mean Corpuscular HGB Conc 33.3 g/dL (30.0-36.0); Mean Corpuscular Hemoglobin 30.6 pg (28.0-34.0); Mean Platelet Volume 9.9 fL (7.4-10.4); Monocytes # 0.2 10^3/uL (0.2-0.9); Monocytes % 4.8 %; Neutrophils # 2.36 10^3/uL (1.8-7.7); Neutrophils % 51.4 %; Nucleated Red Blood Cells % 0 %; Platelet Count 286 10^3/cmm (130-400); Red Blood Count 4.48 10^6/uL (4.1-5.3); Red Cell Distribution Width 12.3 % (12.1-15.1); White Blood Count 4.6 10^3/uL (4.0-10.0)
[2023-04-21 11:08] LABS: Blood Urea Nitrogen 12 mg/dL (6-20); Carbon Dioxide 27 mmol/L (22-29); Chloride 103 mmol/L (98-107); Creatinine Clr Calc Pharmacy 149.1144; Glomerular Filtration Rate 150.3 mL/min (90-130); Glucose 76 mg/dL (65-115); Osmolality Calculated 289 mOsm/kg (285-295); Sodium 140 mmol/L (136-145)
[2023-04-21 11:12] LABS: Anion Gap 13.9 (5-19); Potassium 3.9 mmol/L (3.5-5.1)
[2023-04-22] VITALS (10 sets, daily range): BP systolic 81–161; BP diastolic 48–133; PULSE 59–77; RESP 16–18; TEMP 36.2–36.5; O2SAT 98–100
[2023-04-22] MEDS: sodium chloride 0.9% 1,000 ML 100 ML IV (08:14)
[2023-04-22 08:19] LABS: OR HCG Qualitative Urine Negative (Negative)
[2023-04-22] MEDS: sodium chloride 0.9% 500 ML IV (08:20)
[2023-04-22] MEDS: scopolamine 1.5 Patch 1 PATCH TRANSDERMA (08:21)
--- NOTE | 2023-04-22 08:47 | P.ANESUD_ITS ---
Pre-Anesthetic Update Pre-Anesthetic Assessment: Date of Surgery/Procedure: 04/22/23 Preop Valentina gnosis: Desire permanent sterilization Proposed Procedure: Operation Date: 04/22/23 09:10 Proposed Procedures p Laparoscopic bilateral salpingectomy 29412,Z30.2(Bilateral) - Srikanth Kim MD Any changes to Pre-Anesthetic Assessment?: No Last Intake: Intake Last Liquid Date 04/21/23 Last Liquid Time 22:30 Last Solid Date 04/21/23 Last Solid Time 22:30 Labs Last 48hrs: Short CBC 04/21/23 Range/Units 10:15 WBC 4.6 (4.0-10.0) 10^3/ uL Hgb 13.7 (11.5-15.3) g/dL Hct 41.2 (37.0-47.0) % MCV 92.0 (81-99) fl Plt Count 286 (130-400) 10^3/c mm Neut % (Auto) 51.4 % Neut # (Auto) 2.36 (1.8-7.7) 10^3/u L BMP 04/21/23 10:15 Sodium 140 Potassium 3.9 Chloride 103 Carbon Dioxide 27 BUN 12 Creatinine 0.5 Glucose 76 Calcium 9.0 Vitals: Temperature 97.7 F 04/22/23 07:56 Temperature Source Temporal Artery S can 04/22/23 07:56 Pulse Rate 67 04/22/23 07:56 Respiratory Rate 18 04/22/23 07:56 Blood Pressure 113/76 04/22/23 07:56 Blood Pressure Vidya n 88 04/22/23 07:56 Pulse Oximetry 99 04/22/23 07:56 Oxygen Delivery Me thod Room Air 04/22/23 08:15 Exam: Pre-Anes Outpt Exam: alert, oriented x 3, clear to auscultation bilaterally and regular rate & rhythm Cardiac Studies: No Data to Display
[2023-04-22 08:50] LABS: Add Urine Microscopic? YES; Bilirubin Urine 1+ (Negative); Blood Urine 2+ (Negative); Glucose Urine UA Norm (Normal); Ketones Urine Negative (Negative); Leukocyte Esterase Urine 1+ (Negative); Nitrate Urine Negative (Negative); Protein Urine Neg (Negative); RBC Urine 0-4 /hpf (0-2); Specific Gravity, Urine 1.025 (1.005-1.030); Urine Appearance Hazy (CLEAR); Urine Color Yellow (Yellow); Urobilinogen Urine Norm (Negative); pH Urine 5 (5-7)
[2023-04-22 08:51] LABS: Bacteria Urine 1+ /hpf; Mucus Urine 1+ /hpf; WBC Urine 15-25 /hpf (0-5)
--- NOTE | 2023-04-22 09:28 | W.PM.OPSUD ---
Surgery/Procedure H&P Update DATE OF PROCEDURE: April 22, 2023 DATE H&P PERFORMED: 04/21/23 H&P UPDATE INFORMATION: I have reviewed H&P completed within last 30 days, I have examined patient prior to procedure and No changes to prior documentation PREOP DIAGNOSIS: Desire permanent sterilization PLANNED PROCEDURE: Operation Date: 04/22/23 09:10 Proposed Procedures p Laparoscopic bilateral salpingectomy 62381,Z30.2(Bilateral) - Srikanth Kim MD
[2023-04-22] MEDS: ceFAZolin 2,000 MG in sodium chloride 0.9% (plus) 50 ML 100 MG IV (09:40)
[2023-04-22] MEDS: BUPivacaine 0.5% INJ 30 mL INJECTION (10:10)
--- NOTE | 2023-04-22 10:43 | PM.OP ---
Operative Report Date of procedure: April 22, 2023 Pre-op diagnosis: Preop Diagnosis Desire permanent sterilization Post-op diagnosis: Same as above Procedure done: Scopic bilateral salpingectomy Specimens removed/disposition: Left and right fallopian tube Surgeon: Srikanth Kim MD Estimated blood loss (mL): 1 IV fluids (mL): 500 Urine output (mL): 25 Complications: None Brief History: Ms. Sanchez 27-year-old female G3, P3 desire permanent sterilization Procedure: After informed consent, the patient was taken to the operating room where general anesthesia was administered. She was placed in the dorsal lithotomy position and prepped and draped in sterile fashion. Pre-Procedure Time-Out verifying the correct patient identity, correct procedure verified with consent, correct site and side, correct patient position, availability of correct implants and any special equipment or requirements was performed and acknowledge by the OR team. The patient was examined under anesthesia and found to have a normal uterus with normal adnexa. A weighted speculum was placed in the vagina, and the anterior lip of cervix was grasped with the single toothed tenaculum. A uterine manipulator was advanced into the endocervical canal and uterus. The tenaculum was removed after uterine manipulator was secured. The speculum was removed from the vagina. An intraumbilical incision was made with a scalpel. While tenting up on the abdomen, a Verres needle was admitted into the intra-abdominal cavity. A saline drop test was performed and noted to be within normal limits. Pneumoperitoneum was attained with 4 liters of carbon dioxide. The Verres needle was removed. A 5 mm Opitc view trocar and sleeve were admitted into the abdomen and laparoscopic confirmation of location was achieved. A second incision was made 3 cm above the symphysis pubis, and a 5 mm trocar sleeves were admitted into the abdomen under direct laparoscopic visualization without complication. A survey revealed normal abdominal anatomy with the exception of string adhesion to the right lower anterior abdominal wall. A 5 mm blunt probe was advanced through the second trocar sleeve, and light manipulation of ovaries and uterus to assess the posterior aspects was performed. The pelvic survey shows normal uterus, left and right adnexa. The left ovary was noted with a follicular cyst. The string adhesion was fulgurated and transected with good hemostasis with the Ligasure. The patient was placed into Trendelenburg position. The fallopian tubes were inspected bilaterally and the fimbriated ends of the fallopian tubes were visualized bilaterally. Attention was then directed to the right side. The fallopian tube and mesosalpinx were grasped and the underlying mesosalpinx was cauterized and cut using the Ligasure device. Serial cauterization and cutting was used to separate the fallopian tube from the underlying mesosalpinx until it could be amputated cutting it approximated 2 cm from the cornua. Attention was then turned to the contralateral fallopian tube, which was removed in similar fashion. Both specimens were removed through the trocar and sent to pathology. The instruments were removed. The suprapubic trocar port was removed under direct visualization insuring good hemostasis. The carbon dioxide was allowed to escape from the abdomen. The intraumbilical trocar sleeve was withdrawn under visualization with laparoscope in the sleeve to insure hemostasis. The skin incisions were closed with 3-O Monocryl subcuticular stich and Dermabond. The instruments were removed from the vagina, and excellent hemostasis was noted. The patient tolerated the procedure well, and sponge, lap and needle count were correct times two. The patient was taken to the recovery room in good condition.
[2023-04-22] MEDS: ondansetron 2 mg/ML SDV 2 mL 4 MG IVP (11:05)
[2023-04-22] MEDS: HYDROmorphone 1 mg/mL INJ 1 mL 0.5 MG IVP (11:08)
[2023-04-22] MEDS: HYDROcodone-acetaminophen 5-325 mg Tablet 1 TAB PO (12:07)
--- NOTE | 2023-04-22 13:59 | ANE.PACU2 ---
Inpatient post-anesthesia follow up: Airway intact: Yes Vital signs: Temperature 97.2 F Pulse Rate 59 Respiratory Rate 16 Blood Pressure 102/56 Pulse Oximetry 98 Oxygen Delivery Me thod Room Air Oxygen Flow Rate 3 Fraction of Inspir ed Oxygen Hydration adequate: Yes Nausea and vomiting: No Pain level: 2 Mental status: Baseline
== END 2023-04-22 12:25 | disposition home or self-care (01) ==
PROVIDERS: Anesthesiology; Visit Provider Obstetrics & Gynecology
PROC: (CPT 58661; principal; 2023-04-22 09:00)
DX: Z30.2 Encounter for sterilization (principal)
CPT/HCPCS: 58661; 36415; 80048; 81001; 81025; 84703; 85025; 86850; 86900; 88302; J0330; J0690; J1100; J1170; J1200; J1885; J2405; J2704; J2710; J3010; J3490; J7030; J7040; Q9968